=== PATIENT | male | born 1980 | race African-American/Black ===

== ENCOUNTER 2018-01-25 19:52 | Emergency (ER) | payer OTHER ==
[~2018-01-25] VITALS: Ht 172.7 cm; Wt 113.4 kg
[2018-01-25 20:10] VITALS: BP 126/90
[2018-01-25] MEDS ORDERED: HYDROCODONE/APAP 10/325MG 1 EA TABLET PO ONE (21:00)
[2018-01-25] MEDS ORDERED: KETOROLAC TROMETHAMINE INJ 60 MG/2 ML VIAL IM ONE (21:00)
[2018-01-25] MEDS ORDERED: KETOROLAC TROMETHAMINE INJ 30 MG/ML VIAL ONE (21:09)
[2018-01-25] MEDS ORDERED: HYDROCODONE/APAP 10/325MG 1 EA TABLET ONE (21:09)
== END 2018-01-25 21:28 | disposition home or self-care (01) ==
LOC: ER 19:52
DX: M54.5 Low back pain (principal); E66.8 Other obesity; Z68.30 Body mass index [BMI] 30.0-30.9, adult; E78.00 Pure hypercholesterolemia, unspecified; K21.9 Gastro-esophageal reflux disease without esophagitis
CPT/HCPCS: 96372; 99283; A4606; J1885; Z7610

== ENCOUNTER 2020-08-29 22:18 | Inpatient (IN) | payer OTHER ==
[~2020-08-29] VITALS: Ht 182.9 cm; Wt 136.1 kg
[2020-08-29] MEDS ORDERED: DILTIAZEM HCL 25 MG IV ONE (22:58)
[2020-08-29] MEDS ORDERED: IV NS 0.9% 1,000 ML IV ONE (23:00)
[2020-08-29] MEDS ORDERED: DILTIAZEM HCL 50 MG IV IV ONE (23:00)
[2020-08-29 23:03] LABS: BASOPHILS % (AUTO) 0.5 % (0.0-2.0); EOSINOPHILS % (AUTO) 5.2 % (0.0-6.0); HEMATOCRIT 41 % (39-51); HEMOGLOBIN 13.2 g/dL (13.5-17.5); LYMPHOCYTES # (AUTO) 3.5 /CMM (0.8-4.8); LYMPHOCYTES % (AUTO) 43.4 % (20.0-44.0); MEAN CORPUSCULAR HGB CONC 33 g/dl (31.0-36.0); MEAN CORPUSCULAR VOLUME 92 fL (80-96); MONOCYTES # (AUTO) 0.8 /CMM (0.1-1.30); MONOCYTES % (AUTO) 10.3 % (2.0-12.0); NEUTROPHILS # (AUTO) 3.3 /CMM (1.8-8.9); NEUTROPHILS % (AUTO) 40.6 % (43.0-81.0); PLATELET COUNT (AUTO) 366 /CMM (150-450); RED BLOOD CELL COUNT(AUTO) 4.39 MIL/uL (4.5-6.0); WHITE BLOOD COUNT (AUTO) 8.1 K/uL (4.3-11.0)
[2020-08-29 23:10] LABS: CALCIUM, SERUM 8.8 mg/dL (8.5-10.1); CARBON DIOXIDE 28 mmol/L (21-32); CHLORIDE 104 mmol/L (98-107); CREATININE 1.3 mg/dL (0.6-1.3); GLUCOSE 140 mg/dL (74-106); SODIUM SERUM 140 mmol/L (136-145); UREA NITROGEN, BLOOD 17 mg/dL (7-18)
[2020-08-29 23:16] LABS: ALCOHOL, BLOOD < 3 mg/dL (0-0)
--- NOTE | 2020-08-29 23:45 | NUR ---
PATIENT CAME TO ER BED 13 C/O NEW ONSET OF AFIB RVR. PATIENT STATES THAT HE FELT LIKE HIS HEART WAS POUNDING WEIRDLY. PATIENT ALSO STATES THAT HIS APPLEWATCH TOLD HIM THAT HE HAS AFIB. PATIENT IS AAOX4. NO SOB .BREATHING EVENLY AND UNLABORED ON ROOM AIR. CONNECTED TO THE BANKRUPTCY [place].
[2020-08-30 00:04] LABS: THYROID STIMULATING HORMONE 2.061 uIU/mL (0.358-3.74)
--- NOTE | 2020-08-30 00:26 | NUR ---
PATIENT AMBULATED TO THE RESTROOM WITH A STEADY GAIT.
[2020-08-30] MEDS ORDERED: DILTIAZEM HCL 25 MG IV ONE (01:03)
--- NOTE | 2020-08-30 01:25 | NUR ---
PATIENT AMBULATED TO THE RESTROOM WITH A STEADY GAIT.
[2020-08-30] MEDS ORDERED: DILTIAZEM HCL 25 MG IV IV ONE (01:30)
[2020-08-30] MEDS ORDERED: ACETAMINOPHEN 325 MG TABLET PO PRN (05:00)
[2020-08-30] MEDS ORDERED: ENOXAPARIN SODIUM 150 MG/ML DISP.SYRIN SQ SCH (05:00)
[2020-08-30] MEDS ORDERED: HYDROCODONE/APAP 5/325MG TABLET PO PRN (05:00)
[2020-08-30] MEDS ORDERED: ONDANSETRON HCL/PF 4 MG/2 ML VIAL IVP PRN (05:00)
[2020-08-30] MEDS ORDERED: AMIODARONE 450 MG in IV D5W 250 ML IV PRN (05:00)
[2020-08-30] MEDS ORDERED: AMIODARONE 150 MG/3 ML VIAL IV ONE (05:28)
[2020-08-30 05:34] LABS: BASOPHILS % (AUTO) 0.4 % (0.0-2.0); EOSINOPHILS % (AUTO) 3.3 % (0.0-6.0); HEMATOCRIT 42 % (39-51); HEMOGLOBIN 13.7 g/dL (13.5-17.5); LYMPHOCYTES # (AUTO) 2.5 /CMM (0.8-4.8); LYMPHOCYTES % (AUTO) 34.6 % (20.0-44.0); MEAN CORPUSCULAR HGB CONC 33 g/dl (31.0-36.0); MEAN CORPUSCULAR VOLUME 92 fL (80-96); MONOCYTES # (AUTO) 0.6 /CMM (0.1-1.30); MONOCYTES % (AUTO) 8.4 % (2.0-12.0); NEUTROPHILS # (AUTO) 3.9 /CMM (1.8-8.9); NEUTROPHILS % (AUTO) 53.3 % (43.0-81.0); PLATELET COUNT (AUTO) 362 /CMM (150-450); RED BLOOD CELL COUNT(AUTO) 4.58 MIL/uL (4.5-6.0); WHITE BLOOD COUNT (AUTO) 7.3 K/uL (4.3-11.0)
[2020-08-30 05:56] LABS: ALBUMIN 3.5 g/dL (3.4-5.0); BILIRUBIN,TOTAL 0.7 mg/dL (0.2-1.0); CALCIUM, SERUM 9.1 mg/dL (8.5-10.1); PHOSPHORUS 3.6 mg/dL (2.5-4.9); POTASSIUM 4.8 mmol/L (3.5-5.1); TOTAL PROTEIN, SERUM 7.6 g/dL (6.4-8.2)
[2020-08-30] MEDS ORDERED: ENOXAPARIN SODIUM 30 MG/0.3 ML DISP.SYRIN ONE (06:00)
[2020-08-30] MEDS ORDERED: ENOXAPARIN SODIUM 100 MG/ML DISP.SYRIN SQ ONE (06:01)
[2020-08-30] MEDS ORDERED: METOPROLOL SUCCINATE 50 MG TAB.SR.24H PO SCH (07:30)
[2020-08-30] MEDS ORDERED: PANTOPRAZOLE 40 MG TABLET.DR PO SCH (07:30)
--- NOTE | 2020-08-30 07:39 | NUR ---
REPORT GIVEN TO PABLO ENCINAS FOR [facility].
--- NOTE | 2020-08-30 08:00 | NUR ---
PATIENT A/OX4, BREATHING EVEN AND UNLABORED, NO SOB NOTED. NEEDS ATTENDED. KEPT COMFORTABLE.
[2020-08-30] MEDS ORDERED: PANTOPRAZOLE 40 MG TABLET.DR PO ONE (08:02)
[2020-08-30] MEDS ORDERED: LISI-603 PO (08:44)
[2020-08-30] MEDS ORDERED: ROSU5TAB13 PO (08:44)
[2020-08-30] MEDS ORDERED: METO50TA7 PO (09:44)
[2020-08-30] MEDS ORDERED: PANT40TA2 PO (09:44)
[2020-08-30] MEDS ORDERED: ASPI-1420 PO (09:46)
--- NOTE | 2020-08-30 10:46 | NUR ---
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
--- NOTE | 2020-08-30 12:51 | NUR ---
Patient a/ox4, breathing even and unlabored, no sob noted. Needs attended. Patient discharged to home in stable condition. Written and verbal after care instructions given. Patient verbalizes understanding of instruction.IV removed. Catheter intact and site benign. Pressure and 4x4 applied to site. No bleeding noted.
[2020-08-30 12:55] VITALS: BP 113/33
== END 2020-08-30 12:56 | disposition home or self-care (01) | DRG 309 ==
LOC: ER 22:20 → TRANSITION 23:44
PROVIDERS: ADMIT Nurse Practitioner Acute Care; ATTEND Nurse Practitioner Acute Care
DX: I48.91 Unspecified atrial fibrillation (principal); Z68.41 Body mass index [BMI] 40.0-44.9, adult; D68.59 Other primary thrombophilia; I10 Essential (primary) hypertension; E66.9 Obesity, unspecified; E78.00 Pure hypercholesterolemia, unspecified; E78.5 Hyperlipidemia, unspecified; E66.01 Morbid (severe) obesity due to excess calories; G47.33 Obstructive sleep apnea (adult) (pediatric); K21.9 Gastro-esophageal reflux disease without esophagitis
CPT/HCPCS: 36415; 71045-TC; 80048-TC; 80053-TC; 80061-TC; 83735-TC; 84100-TC; 84439-TC; 84443-TC; 84481; 84484-TC; 85025-TC; 87081-TC; 93307-TC; G0378; G0480; J0282; J1650; J2405; J3490; J7030; J7060

== ENCOUNTER 2021-05-11 19:02 | Emergency (ER) | payer BC, OTHER ==
[~2021-05-11] VITALS: Ht 175.3 cm; Wt 136.1 kg
[~2021-05-11 19:02] MED LIST: ASPI-1420 PO; LISI20TA30 PO; METO50TA7 PO; PANT40TA2 PO; ROSU5TAB13 PO
--- NOTE | 2021-05-11 19:40 | NUR ---
URINE COLLECTED, SENT TO LAB
--- NOTE | 2021-05-11 19:45 | NUR ---
PATIENT BIBS C/O ABD PAIN WITH FEVER. PT COVID RESULT NEGATIVE. PT FULLY VACCINATED. PATIENT IS A/O X 4, RR EVEN AND UNLABORED, NO SOB NOTED. 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
--- NOTE | 2021-05-11 19:45 | NUR ---
LAB AT BEDSIDE
[2021-05-11 20:21] LABS: BASOPHILS % (AUTO) 0.4 % (0.0-2.0); EOSINOPHILS % (AUTO) 0.6 % (0.0-6.0); HEMATOCRIT 42 % (39-51); LYMPHOCYTES # (AUTO) 1.1 K/uL (0.8-4.8); LYMPHOCYTES % (AUTO) 31.9 % (20.0-44.0); MEAN CORPUSCULAR HGB CONC 33 g/dl (31.0-36.0); MEAN CORPUSCULAR VOLUME 90 fL (80-96); MONOCYTES # (AUTO) 0.6 K/uL (0.1-1.30); MONOCYTES % (AUTO) 16.3 % (2.0-12.0); NEUTROPHILS # (AUTO) 1.8 K/uL (1.8-8.9); NEUTROPHILS % (AUTO) 50.8 % (43.0-81.0); PLATELET COUNT (AUTO) 207 K/uL (150-450); RED BLOOD CELL COUNT(AUTO) 4.68 MIL/uL (4.5-6.0); WHITE BLOOD COUNT (AUTO) 3.6 K/uL (4.3-11.0)
[2021-05-11 20:28] LABS: CREATININE 1.2 mg/dL (0.6-1.3); POTASSIUM 4.3 mmol/L (3.5-5.1)
[2021-05-11 20:39] LABS: ALBUMIN 3.8 g/dL (3.4-5.0); BILIRUBIN,DIRECT 0.3 mg/dL (0.0-0.2); BILIRUBIN,TOTAL 1.1 mg/dL (0.2-1.0); TOTAL PROTEIN, SERUM 8.4 g/dL (6.4-8.2)
[2021-05-11 20:48] LABS: BILIRUBIN,URINE SMALL (NEGATIVE); COLOR,URINE YELLOW (YELLOW); LEUKOCYTE ESTERASE ,URINE NEGATIVE (NEGATIVE); NITRITE, URINE NEGATIVE (NEGATIVE); PROTEIN,URINE 30 mg/dl (NEGATIVE); UGLUCOSE NEGATIVE (NEGATIVE); UROBILINOGEN,URINE 0.2 EU/dL (0.2)
[2021-05-11 20:57] LABS: BACTERIA,URINE Few /HPF (None Seen); COARSE GRANULAR CASTS,URINE Few /LPF (None Seen); RBC,URINE 0-2 /HPF (0-2); SQUAMOUS EPITHELIAL CELL,UR Few /HPF (None Seen); WBC,URINE 0-2 /HPF (0-3)
[2021-05-11 21:24] LABS: LYMPHOCYTES % (MANUAL) 35 % (16-48); MONOCYTES % (MANUAL) 15 % (0-11.0); NEUTROPHILS % (MANUAL) 50 (42-76)
--- NOTE | 2021-05-11 22:17 | NUR ---
Patient discharged to home in stable condition. Written and verbal after care instructions given. Patient verbalizes understanding of instruction.
[2021-05-11 22:20] VITALS: BP 134/71
== END 2021-05-11 22:21 | disposition home or self-care (01) ==
LOC: ER 19:26
DX: R50.9 Fever, unspecified (principal); I88.0 Nonspecific mesenteric lymphadenitis; I10 Essential (primary) hypertension; E78.00 Pure hypercholesterolemia, unspecified; K21.9 Gastro-esophageal reflux disease without esophagitis; Z79.899 Other long term (current) drug therapy; Z79.82 Long term (current) use of aspirin
CPT/HCPCS: 36415; 71045-TC; 80048-TC; 80076-TC; 81001; 83690-TC; 85025-TC